=== PATIENT | male | born 1945 | race Caucasian/White ===

== ENCOUNTER 2020-10-27 06:11 | Inpatient (IN) ==
[2020-10-27] MEDS ORDERED: CeFAZolin Syr 2,000MG/20 ML 2,000 MG/20 ML SYRINGE IVPB ONE (06:29)
[2020-10-27] MEDS ORDERED: Ringers Solution, Lactated 1,000 ML IVC SCH ×2 (06:30→07:00)
[2020-10-27] MEDS ORDERED: Scopolamine Patch 1.5 MG PATCH.TD72 TD ONE (06:48)
[2020-10-27] MEDS ORDERED: Ondansetron 4 MG/2 ML VIAL IVP PRN ×2 (06:56→12:48)
[2020-10-27] MEDS ORDERED: *HR* OxyCODONE Immed Rel 5 MG TABLET PO PRN ×2 (06:56→12:48)
[2020-10-27] MEDS ORDERED: *HR* Heparin 5,000 UNIT/ML VIAL ONE (07:02)
[2020-10-27] MEDS ORDERED: *HR* Succinylcholine 200 MG/10 ML VIAL IVP ONE (07:02)
[2020-10-27] MEDS ORDERED: *HR* Remifentanil 1 MG VIAL IVP ONE ×2 (07:02→09:20)
[2020-10-27] MEDS ORDERED: Dexamethasone 4 MG/ML VIAL ONE (07:02)
[2020-10-27] MEDS ORDERED: *HR* Rocuronium Bromide 50 MG/5 ML VIAL ONE ×2 (07:02→08:27)
[2020-10-27] MEDS ORDERED: Lidocaine -MPF 2% 2 ML VIAL ONE (07:02)
[2020-10-27] MEDS ORDERED: *HR* FentaNYL (PF) 100 MCG/2 ML VIAL ONE ×2 (07:02→11:28)
[2020-10-27] MEDS ORDERED: *HR* Phenylephrine 10 MG/ML VIAL ONE (07:02)
[2020-10-27] MEDS ORDERED: *HR* Propofol 200 MG/20 ML VIAL IVP ONE (07:02)
[2020-10-27] MEDS ORDERED: Ondansetron 4 MG/2 ML VIAL ONE (07:02)
[2020-10-27] MEDS ORDERED: Heparin 1,000 UNITS/500 mL 2,000 ML ONE (07:07)
[2020-10-27] MEDS ORDERED: EPHEDrine 50 MG/ML VIAL ONE (07:09)
[2020-10-27] MEDS ORDERED: *HR* Vasopressin 20 UNIT/ML VIAL ONE (07:19)
[2020-10-27] MEDS ORDERED: NiCARdipine 2.5 MG/10 ML Syringe IVPB ONE (07:19)
[2020-10-27] MEDS ORDERED: Heparin 1,000 UNITS/500 mL 500 ML ONE (07:21)
[2020-10-27] MEDS ORDERED: EPINEPHrine 1 MG/ML VIAL ONE (07:23)
[2020-10-27] MEDS ORDERED: ceFAZolin 1,000 MG, Sodium Chloride IRRigation 1,000 ML IR ONE (07:45)
[2020-10-27] MEDS ORDERED: Acetaminophen IV 1,000 MG/100 ML BAG IVPB ONE ×2 (07:56→08:40)
[2020-10-27 08:34] LABS: ABG Base Excess -1 mEq/L (-2 to 3); ABG Chloride 104 mEq/L (98-107); ABG Glucose 96 mg/dL (60-95); ABG HCO3 24 mEq/L (21-27); ABG Ionized Calcium 1.13 mmol/L (1.15-1.35); ABG Oxygen Saturation 100 % (95-98); ABG PCO2 40 mmHg (35-45); ABG PH 7.38 pH Units (7.32-7.45); ABG PO2 252 mmHg (85-104); ABG TCO2 25 mEq/L (20-26)
[2020-10-27] MEDS ORDERED: Protamine Sulfate 50 MG/5 ML VIAL IVP ONE (11:01)
[2020-10-27] MEDS: *HR* FentaNYL (PF) 100 MCG/2 ML VIAL IVP PRN ×3 (11:51→12:01)
[2020-10-27] MEDS ORDERED: Naloxone 0.4 MG/ML INJ IVP PRN (12:48)
[2020-10-27] MEDS ORDERED: Acetaminophen 325 MG TABLET PO PRN (12:48)
[2020-10-27] MEDS ORDERED: Nitroglycerin 0.4 MG TAB.SUBL SL PRN (12:48)
[2020-10-27] MEDS ORDERED: *HR* Labetalol 20 MG/4 ML SYRINGE IVP PRN (12:48)
[2020-10-27] MEDS ORDERED: *HR* HYDROcodone/Acet 5/325 mg TABLET PO PRN (12:48)
[2020-10-27] MEDS: 0.9 % Sodium Chloride 1,000 ML IVC SCH ×2 (13:00→20:06)
[2020-10-27] MEDS: CeFAZolin 2 GM/120 ML BAG IVPB SCH ×2 (15:56→23:46)
[2020-10-28 04:24] LABS: Basophils % 0.1 %; Hematocrit 34.1 % (37.5-50.1); Immature Granulocytes % 0.4 % (0-4); Lymphocytes # 0.9 K/mcL (0.6-4.6); Lymphocytes % 7.7 %; Mean Corpuscular HGB Conc 32.3 g/dL (31.6-35.5); Mean Corpuscular Hemoglobin 29.2 pg (28.0-33.3); Mean Corpuscular Volume 90.5 fL (83.0-100.0); Mean Platelet Volume 9.6 fL (9.4-12.4); Monocytes # 0.8 K/mcL (0.0-1.3); Monocytes % 6.5 %; Neutrophils # 10.2 K/mcL (1.6-8.9); Platelet Count 121 K/mcL (140-400); Red Blood Count 3.77 M/mcL (4.19-5.50); Red Cell Distribution Width 14.7 % (11.5-14.5); Segmented Neutrophils % 85.3 %; White Blood Count 11.9 K/mcL (4.3-11.1)
[2020-10-28 04:42] LABS: BUN/Creatinine Ratio 15 (6-26); Blood Urea Nitrogen 14 mg/dL (8-23); Calcium 8.5 mg/dL (8.6-10.3); Carbon Dioxide 23 mEq/L (23-29); Chloride 111 mEq/L (98-107); Glucose 160 mg/dL (70-105); Osmolality,Calculated 290 (280-300); Potassium 4.4 mEq/L (3.5-5.1); Sodium 138 mEq/L (136-145); eGFR For African Americans > 60 (> 60); eGFR For Non-African Americans > 60 (> 60)
[2020-10-28 07:26] VITALS: BP 110/59
[2020-10-28] MEDS: CeFAZolin 2 GM/120 ML BAG IVPB SCH (07:44)
[2020-10-28] MEDS ORDERED: Metoprolol XL (24 HR) Succ 25 MG TAB.ER.24H PO SCH (09:00)
[2020-10-28] MEDS ORDERED: Finasteride 5 MG TABLET PO SCH (09:00)
[2020-10-28] MEDS ORDERED: Aspirin Enteric Coated 81 MG Tablet PO SCH (09:00)
[2020-10-28] MEDS ORDERED: Multivit/Ca/Min/Fe/FA 1 TAB TABLET PO SCH (09:00)
[2020-10-28] MEDS: 0.9 % Sodium Chloride 1,000 ML IVC SCH (10:35)
== END 2020-10-28 11:25 | disposition home or self-care (01) | DRG 269 ==
LOC: SAMDAY 06:11 → 2NNU 12:23
PROVIDERS: ADMIT Surgery Vascular Surgery; ATTEND Surgery Vascular Surgery